=== PATIENT | female | born 1955 | race Caucasian/White ===

== ENCOUNTER 2024-03-19 10:00 | Outpatient (CLI) | payer MEDICARE | END 2024-03-19 23:59 | disposition home or self-care (01) | LOC: RAD 10:00 | PROVIDERS: ATTEND Registered Nurse | DX: M17.0 Bilateral primary osteoarthritis of knee (principal); M25.561 Pain in right knee; M25.562 Pain in left knee | CPT/HCPCS: 73564 ==